=== PATIENT | male | born 1985 | race Caucasian/White ===

== ENCOUNTER 2018-11-26 15:52 | Emergency (ER) | payer OTHER, SELFPAY ==
[2018-11-26 15:54] VITALS: BP 135/86; PULSE 77; RESP 20; TEMP 36.4; O2SAT 100
[2018-11-26 17:06] VITALS: BP 144/62; PULSE 68; RESP 18; O2SAT 100
--- NOTE | 2018-11-26 17:26 | ED.ABDPAIN ---
HPI - Abdominal Pain <Jaky Wills PA-C - Last Filed: 11/26/18 21:12> General Chief Complaint: Abdominal Pain Stated Complaint: ANAL PAIN Time Seen by Provider: 11/26/18 17:24 Source: patient Mode of arrival: ambulatory Limitations: no limitations History of Present Illness HPI narrative: This 33-year-old male comes to ED secondary to worsening chronic rectal pain. He states he has had rectal pain on and off for about 7 years but constant over the last month, worse 1st thing in the morning and with defecation, but so severe now he can't sleep or work secondary to the pain. He denies any bowel habit changes, states previously he would have a lot of blood in the stool but has not recently, stools are normal. He denies any new fever, abdominal pain, nausea, vomiting, or urinary symptoms. He was seen by Gastroenterology 2 weeks ago but states they could not do a good exam due to his pain. Lidocaine cream and hydrocortisone suppositories were prescribed but not helpful. He has also been taking ibuprofen without relief Related Data Home Medications Medication Instructions Recorded Confirmed hydrocortisone acetate 25 mg SC DAILY 11/26/18 11/26/18 paroxetine HCl 10 mg PO DAILY 11/26/18 11/26/18 Previous Rx's Medication Instructions Recorded famotidine [Pepcid] 40 mg PO QDAY #30 08/22/17 nitroglycerin 1 inch SC Q12H 21 Days #60 gram 11/26/18 Allergies Allergy/AdvReac Type Severity Reaction Status Date / Time No Known Drug Allergies Allergy Verified 10/04/18 18:30 Review of Systems <Jaky Wills PA-C - Last Filed: 11/26/18 21:12> Review of Systems ROS Unobtainable: All systems reviewed & are unremarkable except as noted in HPI and below PFSH <Jaky Wills PA-C - Last Filed: 11/26/18 21:12> Medical History (Updated 11/26/18 @ 18:44 by Jaky Wills PA-C) Chronic rectal pain (Chronic) History of anxiety (Resolved) Surgical History (Updated 11/26/18 @ 17:56 by Jaky Wills PA-C) Status post appendectomy (Resolved) Social History Smoking Status: Never smoker Social History Smoking Status: Never smoker Exam <Jaky Wills PA-C - Last Filed: 11/26/18 21:12> Narrative Exam Narrative: GENERAL APPEARANCE: Patient standing, intermittently tearful HEENT: PERRL, EOMI, no scleral icterus NECK: Supple LUNGS: Clear to auscultation bilaterally. HEART: Rate and rhythm regular, normal S1 and S2, no S3 or S4. ABDOMEN: Soft, nontender, nondistended, bowel sounds present x 4 quadrants, no masses palpable EXTREMITIES: No edema DERMATOLOGIC: No jaundice or exanthem NEUROLOGIC: Alert and oriented with normal speech and coordination RECTAL: exquisitely tender over the external rectal tissue, more on the R. side where there is a small pile to R. of midline. Difficult to localize a fissure secondary to tenderness on exam. Tiny prolapsed hemorrhoid left upper, nontender Initial Vital Signs Initial Vital Signs: Vital Signs Temperature 97.6 F 11/26/18 15:54 Pulse Rate 77 11/26/18 15:54 Respiratory Rate 20 11/26/18 15:54 Blood Pressure 135/86 11/26/18 15:54 Pulse Oximetry 100 11/26/18 15:54 <Rj Short DO - Last Filed: 11/26/18 22:31> Initial Vital Signs Initial Vital Signs: Vital Signs Temperature 97.6 F 11/26/18 15:54 Pulse Rate 77 11/26/18 15:54 Respiratory Rate 20 11/26/18 15:54 Blood Pressure 135/86 11/26/18 15:54 Pulse Oximetry 100 11/26/18 15:54 Course <Jaky Wills PA-C - Last Filed: 11/26/18 21:12> Additional Information: Patient is markedly improved after application of topical lidocaine. He wishes definitive treatment of this would like to obtain a surgical consultation. I spoke with Dr. Santiago, on-call for surgery, who would be able to see patient on morning. Patient will contact her office in the morning. He has not had any recent rectal bleeding, does have a history and explained it may still be helpful to proceed with colonoscopy at some point to ensure no inflammatory bowel disease. Orders Ordered: Discontinued Medications Nitroglycerin (Nitro-Bid) 0.5 inch TOP NOW ONE Stop: 11/26/18 17:48 Last Admin: 11/26/18 17:53 Dose: 0.5 inch Vital Signs - 8 hr 11/26/18 15:54 11/26/18 17:06 11/26/18 17:53 Temperature 97.6 F Pulse Rate 77 68 68 Respiratory Rate 20 18 Blood Pressure 135/86 126/52 L Blood Pressure [Left Arm] 144/62 H Pulse Oximetry 100 100 11/26/18 18:54 11/26/18 18:55 Temperature Pulse Rate 57 L 57 L Respiratory Rate 12 Blood Pressure 106/42 L 106/42 L Blood Pressure [Left Arm] Pulse Oximetry 100 <Rj Short DO - Last Filed: 11/26/18 22:31> Orders Ordered: Discontinued Medications Nitroglycerin (Nitro-Bid) 0.5 inch TOP NOW ONE Stop: 11/26/18 17:48 Last Admin: 11/26/18 17:53 Dose: 0.5 inch Vital Signs - 8 hr 11/26/18 15:54 11/26/18 17:06 11/26/18 17:53 Temperature 97.6 F Pulse Rate 77 68 68 Respiratory Rate 20 18 Blood Pressure 135/86 126/52 L Blood Pressure [Left Arm] 144/62 H Pulse Oximetry 100 100 11/26/18 18:54 11/26/18 18:55 Temperature Pulse Rate 57 L 57 L Respiratory Rate 12 Blood Pressure 106/42 L 106/42 L Blood Pressure [Left Arm] Pulse Oximetry 100 Discharge Plan Departure Patient Disposition: Home Clinical Impression: Rectal fissure Discharge Date/Time: 11/26/18 18:55 Interventions: ED Discharge Assessment Last Done: 11/26/18 18:55 Instructions: DI for Anal Fissure Activity Restrictions/Additional Instructions: I suspect that you have an anal fissure, or tear into the sphincter muscle, that is causing your severe pain. Sometimes this can be treated medically, however since you have had such miserable pain for so long, it is reasonable that you want to consider treating this surgically. Please use the nitroglycerin ointment every 12 hours, apply 1st thing in the morning when you wake up so this is working when you have a bowel movement. I spoke with our on-call surgeon, Dr. Santiago, who asked that you call her office 1st thing tomorrow morning and let them know that she would like to see you on morning for follow-up of your visit here. As we talked about, you can return in the interim if you have any acutely worsening symptoms. Prescriptions: New nitroglycerin 0.4 % (w/w) ointment 1 inch SC Q12H 21 Days Qty: 60 RF: 0 No Action famotidine [Pepcid] 40 MG tablet 40 mg PO QDAY Qty: 30 RF: 2 paroxetine HCl 10 mg Tablet 10 mg PO DAILY RF: 0 hydrocortisone acetate 25 mg Suppository 25 mg SC DAILY RF: 0 Referrals: Evan Wyatt MD [Physician] - Mindy Santiago MD [Physician] - Stand Alone Forms: Work Release Note <Rj Short DO - Last Filed: 11/26/18 22:31> Cosign ED Attending Emily Attestation: I was available for consultation during this patient's emergency department encounter
[2018-11-26 17:53] VITALS: BP 126/52; PULSE 68
[2018-11-26] MEDS: NITROGLYCERIN OINT 1 INCH/GM OINT...G. 0.5 INCH TOP (17:53)
--- NOTE | 2018-11-26 17:58 | ED_ITS ---
HPI - Abdominal Pain <Jaky Wills PA-C - Last Filed: 11/26/18 21:12> General Chief Complaint: Abdominal Pain Stated Complaint: ANAL PAIN Time Seen by Provider: 11/26/18 17:24 Source: patient Mode of arrival: ambulatory Limitations: no limitations History of Present Illness HPI narrative: This 33-year-old male comes to ED secondary to worsening chronic rectal pain. He states he has had rectal pain on and off for about 7 years but constant over the last month, worse 1st thing in the morning and with defecation, but so severe now he can't sleep or work secondary to the pain. He denies any bowel habit changes, states previously he would have a lot of blood in the stool but has not recently, stools are normal. He denies any new fever, abdominal pain, nausea, vomiting, or urinary symptoms. He was seen by Gastroenterology 2 weeks ago but states they could not do a good exam due to his pain. Lidocaine cream and hydrocortisone suppositories were prescribed but not helpful. He has also been taking ibuprofen without relief Related Data Home Medications Medication Instructions Recorded Confirmed hydrocortisone acetate 25 mg RI DAILY 11/26/18 11/26/18 paroxetine HCl 10 mg PO DAILY 11/26/18 11/26/18 Previous Rx's Medication Instructions Recorded famotidine [Pepcid] 40 mg PO QDAY #30 08/22/17 nitroglycerin 1 inch RI Q12H 21 Days #60 gram 11/26/18 Allergies Allergy/AdvReac Type Severity Reaction Status Date / Time No Known Drug Allergies Allergy Verified 10/04/18 18:30 Review of Systems <Jaky Wills PA-C - Last Filed: 11/26/18 21:12> Review of Systems ROS Unobtainable: All systems reviewed & are unremarkable except as noted in HPI and below PFSH <Jaky Wills PA-C - Last Filed: 11/26/18 21:12> Medical History (Updated 11/26/18 @ 18:44 by Jaky Wills PA-C) Chronic rectal pain (Chronic) History of anxiety (Resolved) Surgical History (Updated 11/26/18 @ 17:56 by Jaky Wills PA-C) Status post appendectomy (Resolved) Social History Smoking Status: Never smoker Social History Smoking Status: Never smoker Exam <Jaky Wills PA-C - Last Filed: 11/26/18 21:12> Narrative Exam Narrative: GENERAL APPEARANCE: Patient standing, intermittently tearful HEENT: PERRL, EOMI, no scleral icterus NECK: Supple LUNGS: Clear to auscultation bilaterally. HEART: Rate and rhythm regular, normal S1 and S2, no S3 or S4. ABDOMEN: Soft, nontender, nondistended, bowel sounds present x 4 quadrants, no masses palpable EXTREMITIES: No edema DERMATOLOGIC: No jaundice or exanthem NEUROLOGIC: Alert and oriented with normal speech and coordination RECTAL: exquisitely tender over the external rectal tissue, more on the R. side where there is a small pile to R. of midline. Difficult to localize a fissure secondary to tenderness on exam. Tiny prolapsed hemorrhoid left upper, nontender Initial Vital Signs Initial Vital Signs: Vital Signs Temperature 97.6 F 11/26/18 15:54 Pulse Rate 77 11/26/18 15:54 Respiratory Rate 20 11/26/18 15:54 Blood Pressure 135/86 11/26/18 15:54 Pulse Oximetry 100 11/26/18 15:54 <Rj Short DO - Last Filed: 11/26/18 22:31> Initial Vital Signs Initial Vital Signs: Vital Signs Temperature 97.6 F 11/26/18 15:54 Pulse Rate 77 11/26/18 15:54 Respiratory Rate 20 11/26/18 15:54 Blood Pressure 135/86 11/26/18 15:54 Pulse Oximetry 100 11/26/18 15:54 Course <Jaky Wills PA-C - Last Filed: 11/26/18 21:12> Additional Information: Patient is markedly improved after application of topical lidocaine. He wishes definitive treatment of this would like to obtain a surgical consultation. I spoke with Dr. Santiago, on-call for surgery, who would be able to see patient on morning. Patient will contact her offi ce in the morning. He has not had any recent rectal bleeding, does have a history and explained it may still be helpful to proceed with colonoscopy at some point to ensure no inflammatory bowel disease. Orders Ordered: Discontinued Medications Nitroglycerin (Nitro-Bid) 0.5 inch TOP NOW ONE Stop: 11/26/18 17:48 Last Admin: 11/26/18 17:53 Dose: 0.5 inch Vital Signs - 8 hr 11/26/18 15:54 11/26/18 17:06 11/26/18 17:53 Temperature 97.6 F Pulse Rate 77 68 68 Respiratory Rate 20 18 Blood Pressure 135/86 126/52 L Blood Pressure [Left Arm] 144/62 H Pulse Oximetry 100 100 11/26/18 18:54 11/26/18 18:55 Temperature Pulse Rate 57 L 57 L Respiratory Rate 12 Blood Pressure 106/42 L 106/42 L Blood Pressure [Left Arm] Pulse Oximetry 100 <Rj Short DO - Last Filed: 11/26/18 22:31> Orders Ordered: Discontinued Medications Nitroglycerin (Nitro-Bid) 0.5 inch TOP NOW ONE Stop: 11/26/18 17:48 Last Admin: 11/26/18 17:53 Dose: 0.5 inch Vital Signs - 8 hr 11/26/18 15:54 11/26/18 17:06 11/26/18 17:53 Temperature 97.6 F Pulse Rate 77 68 68 Respiratory Rate 20 18 Blood Pressure 135/86 126/52 L Blood Pressure [Left Arm] 144/62 H Pulse Oximetry 100 100 11/26/18 18:54 11/26/18 18:55 Temperature Pulse Rate 57 L 57 L Respiratory Rate 12 Blood Pressure 106/42 L 106/42 L Blood Pressure [Left Arm] Pulse Oximetry 100 Discharge Plan Departure Patient Disposition: Home Clinical Impression: Rectal fissure Discharge Date/Time: 11/26/18 18:55 Interventions: ED Discharge Assessment Last Done: 11/26/18 18:55 Instructions: DI for Anal Fissure Activity Restrictions/Additional Instructions: I suspect that you have an anal fissure, or tear into the sphincter muscle, that is causing your severe pain. Sometimes this can be treated medically, however since you have had such miserable pain for so long, it is reasonable that you want to consider treating this surgically. Please use the nitroglycerin ointment every 12 hours, apply 1st thing in the morning when you wake up so this is working when you have a bowel movement. I spoke with our on-call surgeon, Dr. Santiago, who asked that you call her office 1st thing tomorrow morning and let them know that she would like to see you on morning for follow-up of your visit here. As we talked about, you can return in the interim if you have any acutely worsening symptoms. Prescriptions: New nitroglycerin 0.4 % (w/w) ointment 1 inch RI Q12H 21 Days Qty: 60 RF: 0 No Action famotidine [Pepcid] 40 MG tablet 40 mg PO QDAY Qty: 30 RF: 2 paroxetine HCl 10 mg Tablet 10 mg PO DAILY RF: 0 hydrocortisone acetate 25 mg Suppository 25 mg RI DAILY RF: 0 Referrals: Evan Wyatt MD [Physician] - Mindy Santiago MD [Physician] - Stand Alone Forms: Work Release Note <Rj Short DO - Last Filed: 11/26/18 22:31> Cosign ED Attending Emily Attestation: I was available for consultation during this patient's emergency department encounter
[2018-11-26 18:54] VITALS: BP 106/42; PULSE 57
[2018-11-26 18:55] VITALS: BP 106/42; PULSE 57; RESP 12; O2SAT 100
== END 2018-11-26 18:55 | disposition home or self-care (01) ==
PROVIDERS: Emergency Provider Internal Medicine; PCP Internal Medicine
DX: K60.2 Anal fissure, unspecified (principal)
CPT/HCPCS: 99282

== ENCOUNTER 2018-12-03 06:37 | Day surgery (SDC) | payer OTHER, SELFPAY ==
[2018-11-29 08:12] VITALS: BMI 24.8
[2018-12-03] VITALS (9 sets, daily range): BP systolic 110–142; BP diastolic 63–86; PULSE 65–77; RESP 10–16; TEMP 36.2–36.7; O2SAT 96–100; BMI 23.9
--- NOTE | 2018-12-03 07:27 | PM.PREOP ---
Pre-operative Note Interval Note History & Physical reviewed/Exam performed by Physician: Yes Changes to H&P: No
--- NOTE | 2018-12-03 08:15 | SUR.OPER ---
Prone on padded OR bed, head in foam head support, gel chest rolls, gel pad under knees, pillow under lower legs, toes free of pressure, arms secured on padded arm boards at <90 degrees abduction. Safety belt at thigh.
[2018-12-03] MEDS: BUPIVACAINE 0.5% W/ EPI (PF) VIAL 30 ML INJ (08:21)
--- NOTE | 2018-12-03 08:50 | PM.OP.1 ---
Operative Date/Time/Diagnoses Date of procedure: 12/03/18 Time of procedure: 08:50 Pre-op diagnosis: Chronic Anal Fissure Post-op diagnosis: same Procedure & Clinicians Procedure: 1. Exam Under Anesthesia 2. 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 All risks, benefits, and alternatives are discussed and patient wishes to proceed with surgical management. Surgeon: Mindy Santiago Anesthesia Type: General Operative Notes Findings: posterior midline chronic fissure identified Closure Type: primary Specimen(s): none sent Estimated Blood Loss (mL): 10 Procedure in detail: The patient was taken to the operating room and placed on the operating table in prone jacknife position after induction of appropriate anesthesia. The perineal and buttocks areas were prepped and draped in usual sterile fashion. Visual inspection shows a scarred line along the posterior midline. A small area of heaped up tissue along this is noted but no true skin tag. The remainder of the examined anal canal and perianal skin was examined and no other defects or evidence of abscess were noted. A lubricated retractor was placed in the anus. No other areas of tears or abnormalities are noted. Given the findings, a lateral internal sphincterotomy was performed. Retractor was turned such that the right wall was exposed and manual palpation identified the two muscle groups. A 15 blade scalpel was used to divide the anoderm longitudinally between the internal and external sphincters. This was gently opened further to expose the internal sphincter bluntly using metzenbaum scissors. The 15 blade scalpel is then used to divide the muscle fibers to the level of the dentate line. Hemostasis was obtained using electrocautery. This caused a small opening in the mucosa. This defect and the incision are closed with 3-0 chromic. Lidocaine jelly was inserted into the anus. An ABD pad and mesh briefs were placed. The patient was awakened and taken to the PACU in stable condition. All counts were correct at the end of the procedure. The patient tolerated the procedure well. Complications: none Condition: stable Disposition: PACU
[2018-12-03] MEDS: MEPERIDINE 100 MG/ML INJ IV (09:13)
[2018-12-03] MEDS: OXYCODONE/ACETAMINOPHEN 5/325 TABLET 1 TAB PO (09:33)
--- NOTE | 2018-12-03 14:51 | SUR.PHASEII ---
Late entry: Prescriptions given to mom to get filled, when she returned, pt and mom informed of d/c instructions, both voiced an understanding. Pt dressed with assistDressing to rectal area c/d/i. of mom and left when ready and in stable condition.
== END 2018-12-03 11:00 | disposition home or self-care (01) ==
PROVIDERS: PCP Internal Medicine; Visit Provider Surgery
PROC: (CPT 46080; principal; 2018-12-03 07:45)
DX: K60.2 Anal fissure, unspecified (principal)
CPT/HCPCS: 46200; J1100; J1885; J2175; J2250; J2405; J2704; J3010